=== PATIENT | female | born 1970 | race Caucasian/White ===

== ENCOUNTER 2016-12-28 02:14 | Observation (INO) ==
[2016-12-28] MEDS ORDERED: Aspirin 81 MG TAB.CHEW PO ONE (02:17)
--- NOTE | 2016-12-28 02:21 | Emergency Department Note ---
Disposition Clinical Impression: Chest pain Qualifiers: Chest pain type: unspecified Qualified Code(s): R07.9 - Chest pain, unspecified Disposition: Admitted As Inpatient Condition: Good Forms: ED Satisfaction Letter Time of Disposition: 04:06 Chest Pain HPI - General Chief Complaint: ED Chest Pain Stated Complaint: chest pain Source: patient - History of Present Illness HPI Narrative: Patient presents to the emergency department for evaluation of substernal chest pain with radiation to the jaw and neck. She denies radiation of pain into the back or extremities. She states that she has been slightly diaphoretic, though she states that the symptoms began while she was at work and it is quite warm there. She denies any associated dyspnea nausea or vomiting. She denies abdominal pain. She denies lower extremity edema or calf discomfort. Denies recent prolonged immobilization. Denies history of DVT or PE. She states that she took one 81 mg aspirin prior to arrival. - Related Data Allergies Allergy/AdvReac Type Severity Reaction Status Date / Time ketorolac [From Toradol] Allergy Difficulty Verified 12/28/16 02:37 Breathing Constitutional: Denies: fever, chills Eyes: Denies: vision change ENT ED: Denies: ear pain, throat pain Cardiovascular: Reports: as per HPI Respiratory: Denies: cough, dyspnea, wheezes, hemoptysis Gastrointestinal: Denies: abdominal pain, nausea, vomiting, diarrhea Genitourinary: Denies: urgency, dysuria, frequency Integumentary: Denies: rash Neurological: Denies: headache, weakness, numbness, paresthesias Endocrine: Denies: fatigue Hematological/Lymphatic: Denies: easy bleeding Chest Pain PMH - Past Medical History Medical history: Reports: hypertension Surgical history: Reports: hysterectomy - Social History Smoking Status: Current every day smoker Drug use: Reports: none Father Family Medical History Unknown: Yes (Strong family history of coronary artery disease) Physical Exam - General Limitations: no limitations General appearance: alert, in no apparent distress (Resting comfortable and smiling interactive alert and appropriately cooperative and pleasant) - Head Head exam: atraumatic, normocephalic - Eye Eye exam: Present: normal appearance, PERRL, EOMI - ENT ENT exam: normal exam, normal oropharynx, mucous membranes moist - Neck Neck exam: Present: normal inspection - Respiratory Respiratory exam: Present: normal lung sounds bilaterally - Cardiovascular Cardiovascular exam: Present: regular rate, normal rhythm, normal heart sounds - Abdominal Exam Abdominal exam: Present: soft, Non-Tender, normal bowel sounds - Extremities Exam Extremities exam: Present: normal inspection, full ROM, normal capillary refill. Absent: tenderness, pedal edema, calf tenderness - Expanded Lower Extremity Exam Neurovascular/Tendon exam: Present: normal capillary refill. Absent: pulse deficit, motor deficit - Back Exam Back exam: Present: normal inspection. Absent: tenderness - Neurological Exam Neurological exam: Present: alert, oriented X3 - Psychiatric Psychiatric exam: Present: normal affect, normal mood - Skin Skin exam: Present: warm, dry, intact, normal color Course Vital Signs Temperature 96.3 F L 12/28/16 02:15 Pulse Rate 83 12/28/16 02:15 Respiratory Rate 13 12/28/16 02:15 Blood Pressure 145/97 12/28/16 02:15 O2 Sat by Pulse Oximetry 98 12/28/16 02:15 Temperature 96.3 F L 12/28/16 02:15 Pulse Rate 83 12/28/16 02:15 Respiratory Rate 13 12/28/16 02:15 Blood Pressure 145/97 12/28/16 02:15 O2 Sat by Pulse Oximetry 98 12/28/16 02:15 Oxygen Delivery Oxygen Delivery Room Air Chest Pain - MDM Narrative Medical decision making narrative: Time 405: Patient resting comfortably, states her pain is nearly resolved, vital signs are stable. Patient will be admitted to the hospitalist service for ongoing evaluation of her symptoms - Lab Data Lab results reviewed: Yes I reviewed the patient's lab results. Result diagrams: 12/28/16 02:50 12/28/16 02:50 Lab Results 12/28/16 12/28/16 12/28/16 Range/Units 02:50 02:50 02:50 WBC 12.7 H (4.3-11.1) K/mcL RBC 4.81 (3.82-4.97) M/mcL Hgb 14.3 (11.5-15.4) g/dL Hct 42.6 (35.3-44.9) % MCV 88.6 (83.0-100.0) fL MCH 29.7 (28.0-33.3) pg MCHC 33.6 (31.6-35.5) g/dL RDW 13.3 (11.5-14.5) % Plt Count 288 (140-400) K/mcL MPV 10.2 (9.4-12.4) fL Immature Gran % 0.3 (0-4) % Seg Neutrophils % 50.9 % Lymphocytes % 39.5 % Monocytes % 7.4 % Eosinophils % 1.7 % Basophils % 0.2 % Neutrophils # 6.5 (1.6-8.9) K/mcL Lymphocytes # 5.0 H (0.6-4.6) K/mcL Monocytes # 0.9 (0.0-1.3) K/mcL Eosinophils # 0.2 (0.0-0.6) K/mcL Basophils # 0.0 (0.0-0.2) K/mcL PT 10.4 (9.4-12.1) Seconds INR 1.0 APTT 27.7 (26.0-36.0) Seconds Sodium (136-145) mEq/L Potassium (3.5-4.5) mEq/L Chloride (98-109) mEq/L Carbon Dioxide (19-29) mEq/L BUN (7-20) mg/dL Creatinine (0.57-1.11) mg/dL Est GFR ( Amer) (> 60) Est GFR (Non-Af Amer) (> 60) BUN/Creatinine Ratio (6-26) Glucose (70-99) mg/dL Calculated Osmolality (280-300) Calcium (8.6-10.8) mg/dL Total Bilirubin 0.2 (0.2-1.2) mg/dL Direct Bilirubin < 0.1 (0.0-0.5) mg/dL Indirect Bilirubin 0.1 (0.0-1.2) mg/dL AST 12 (5-34) Units/L ALT 21 (0-55) Units/L Alkaline Phosphatase 64 (38-126) Units/L Troponin I (0-0.03) ng/mL Serum Total Protein 7.4 (6.0-8.3) g/dL Albumin 4.0 (3.5-5.0) g/dL Globulin 3.4 (2.4-3.5) g/dL Albumin/Globulin Ratio 1.2 (1.1-2.2) Lipase 52 (8-78) Units/L 06/05/17 06/05/17 Range/Units 02:50 02:50 WBC (4.3-11.1) K/mcL RBC (3.82-4.97) M/mcL Hgb (11.5-15.4) g/dL Hct (35.3-44.9) % MCV (83.0-100.0) fL MCH (28.0-33.3) pg MCHC (31.6-35.5) g/dL RDW (11.5-14.5) % Plt Count (140-400) K/mcL MPV (9.4-12.4) fL Immature Gran % (0-4) % Seg Neutrophils % % Lymphocytes % % Monocytes % % Eosinophils % % Basophils % % Neutrophils # (1.6-8.9) K/mcL Lymphocytes # (0.6-4.6) K/mcL Monocytes # (0.0-1.3) K/mcL Eosinophils # (0.0-0.6) K/mcL Basophils # (0.0-0.2) K/mcL PT (9.4-12.1) Seconds INR APTT (26.0-36.0) Seconds Sodium 142 (136-145) mEq/L Potassium 3.9 (3.5-4.5) mEq/L Chloride 104 (98-109) mEq/L Carbon Dioxide 24 (19-29) mEq/L BUN 22 H (7-20) mg/dL Creatinine 1.06 (0.57-1.11) mg/dL Est GFR ( Amer) > 60 (> 60) Est GFR (Non-Af Amer) 56 L (> 60) BUN/Creatinine Ratio 21 (6-26) Glucose 95 (70-99) mg/dL Calculated Osmolality 297 (280-300) Calcium 9.7 (8.6-10.8) mg/dL Total Bilirubin (0.2-1.2) mg/dL Direct Bilirubin (0.0-0.5) mg/dL Indirect Bilirubin (0.0-1.2) mg/dL AST (5-34) Units/L ALT (0-55) Units/L Alkaline Phosphatase (38-126) Units/L Troponin I 0.00 (0-0.03) ng/mL Serum Total Protein (6.0-8.3) g/dL Albumin (3.5-5.0) g/dL Globulin (2.4-3.5) g/dL Albumin/Globulin Ratio (1.1-2.2) Lipase (8-78) Units/L ITS Impressions Chest X-Ray 12/28/16 02:17 IMPRESSION: No acute process. D/ / Jamshid Del Cid MD / Jamshid Del Cid MD Interpreting Provider: Jamshid Del Cid MD - Radiology Data Radiology results reviewed: Yes I reviewed the patient's radiology results. - EKG Data EKG attestation: Yes I reviewed and interpreted this EKG. EKG shows normal: sinus rhythm (Normal sinus rhythm with a rate of 68. Normal axis. No acute ST segment or T-wave changes.)
[2016-12-28] MEDS ORDERED: Nitroglycerin 1 INCH/GM PACKET TP ONE (02:23)
[2016-12-28 03:04] LABS: Basophils % 0.2 %; Eosinophils # 0.2 K/mcL (0.0-0.6); Eosinophils % 1.7 %; Hematocrit 42.6 % (35.3-44.9); Hemoglobin 14.3 g/dL (11.5-15.4); Immature Granulocytes % 0.3 % (0-4); Lymphocytes % 39.5 %; Mean Corpuscular HGB Conc 33.6 g/dL (31.6-35.5); Mean Corpuscular Hemoglobin 29.7 pg (28.0-33.3); Mean Corpuscular Volume 88.6 fL (83.0-100.0); Mean Platelet Volume 10.2 fL (9.4-12.4); Monocytes # 0.9 K/mcL (0.0-1.3); Monocytes % 7.4 %; Neutrophils # 6.5 K/mcL (1.6-8.9); Platelet Count 288 K/mcL (140-400); Red Blood Count 4.81 M/mcL (3.82-4.97); Red Cell Distribution Width 13.3 % (11.5-14.5); Segmented Neutrophils % 50.9 %
[2016-12-28 03:05] LABS: Prothrombin Time 10.4 Seconds (9.4-12.1)
[2016-12-28 03:08] LABS: Activated Partial Thrombo Time 27.7 Seconds (26.0-36.0)
[2016-12-28 03:15] LABS: BUN/Creatinine Ratio 21 (6-26); Blood Urea Nitrogen 22 mg/dL (7-20); Calcium 9.7 mg/dL (8.6-10.8); Carbon Dioxide 24 mEq/L (19-29); Chloride 104 mEq/L (98-109); Glucose 95 mg/dL (70-99); Osmolality,Calculated 297 (280-300); Potassium 3.9 mEq/L (3.5-4.5); Sodium 142 mEq/L (136-145); eGFR For African Americans > 60 (> 60); eGFR For Non-African Americans 56 (> 60)
[2016-12-28 03:18] LABS: Alanine Aminotransferase 21 Units/L (0-55); Albumin/Globulin Ratio 1.2 (1.1-2.2); Alkaline Phosphatase 64 Units/L (38-126); Aspartate Amino Transferase 12 Units/L (5-34); Bilirubin,Direct < 0.1 mg/dL (0.0-0.5); Bilirubin,Indirect 0.1 mg/dL (0.0-1.2); Bilirubin,Total 0.2 mg/dL (0.2-1.2); Globulin 3.4 g/dL (2.4-3.5); Lipase 52 Units/L (8-78); Total Protein 7.4 g/dL (6.0-8.3)
[2016-12-28 06:32] VITALS: BP 115/75
--- NOTE | 2016-12-28 12:32 | Internal Med History&Physical ---
Date of Encounter: 12/28/16 Time of Encounter: 12:00 Assessment and Plan (1) Chest pain Current visit: Yes Status: Acute She is pain-free at present. Repeat cardiac enzymes were ordered through emergency room. Further workup be done as needed. Qualifiers: Chest pain type: unspecified Qualified Code(s): R07.9 - Chest pain, unspecified (2) Hypertension Current visit: Yes Status: Chronic Blood pressure will be monitored. She is uncertain of the doses of her metoprolol and lisinopril/HCTZ. Qualifiers: Hypertension type: essential hypertension Qualified Code(s): I10 - Essential (primary) hypertension (3) Azotemia Current visit: Yes Status: Acute Suspect secondary to lisinopril/HCTZ. Internal Medicine - H&P: HPI Chief complaint: Chest discomfort Admitted From: Home Plans for Post Hospital Care: Home History of present illness: Ms. Nieves is a 46 year old female who came from work to emergency room after she developed a discomfort in her chest that she describes as a left chest pressure that radiated to her neck and jaw. It occurred approximately 2 AM as she was doing her usual duties at work. 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 She came to emergency room and was evaluated. She was admitted to [facility] for ongoing care needs. She states she is pain-free at this time. She thinks she has had previous similar pain on 2 occasions most recently 3-4 years ago. She has worked at her present duties for several weeks to months without any discomfort of similar nature. Her cardiovascular history is significant for hypertension. She denies AK heart failure angina DVT or pulmonary embolus. She does not check her blood pressures at home. She states she recently had lisinopril/HCTZ added to her metoprolol for blood pressure control. Past Med Surg Social Fam HX - Past Medical History Medical history: hypertension Psychiatric history: no psych history - Past Surgical History Surgical History: cholecystectomy, hysterectomy - Social History Smoking Status: Current every day smoker Packs per day: 0.5 Smokeless Tobacco Status: No Alcohol use: occasionally Drug use: none - Family History Father History Unknown: Yes Internal Medicine - H&P: Meds Aspirin [Lo-Dose Aspirin EC] 81 mg PO 12/28/16 [History] Metoprolol Succinate/Hctz [Metoprolol ER-Hctz 25-12.5 mg] 1 tab PO BID 12/28/16 [History] Pantoprazole Sodium [Protonix] 20 mg PO DAILY 12/28/16 [History] Allergies ketorolac [From Toradol] Allergy (Verified 12/28/16 02:37) Difficulty Breathing All Systems PM: A 10-system review of systems was performed and is negative for pertinent findings except as documented above in the HPI. Review of systems: Gen.: She states her weight has been stable past few months Cardiovascular: As per history of present illness Respiratory: She smoked since age 19 never exceeding 1 pack per day. She denies known chronic lung disease GI: She has had cholecystectomy. She denies disorders of her liver or exocrine pancreas : She denies hematuria dysuria or kidney stones Neurologic: She denies large distribution strokes or seizures Endocrine: She has hyperlipidemia but denies diabetes or thyroid disease. Hematology/oncology: She denies blood disorders cancers or anemia Psychiatric: She denies anxiety depression or other mental health issues Musk skeletal: She denies arthritis gout other bone joint or muscle disorders. - Constitutional Vitals: Temp Pulse Resp BP Pulse Ox 97.7 F 66 18 115/75 98 12/28/16 06:30 12/28/16 06:30 12/28/16 06:30 12/28/16 06:30 12/28/16 06:30 Exam: Gen.: She is a well-developed well-nourished female who appears in no acute distress at present time HEENT: Head is atraumatic and normocephalic. Eyes: EOMI. There is no scleral icterus. Mouth: Mucosa is moist. Neck: Supple and nontender. There is no thyromegaly or adenopathy noted. Heart: Regular without murmurs gallops or ectopics Chest: She is nontender in her chest wall to palpation Abdomen: Soft and nontender. No masses or guarding are noted. Extremities: There is no cyanosis edema or clubbing noted. Dorsalis pedis and posttibial pulses are trace palpable bilaterally. Neurologic: Mental status: She is talkative and a good historian. Cranial nerves: Smile is symmetric. Forehead wrinkles bilaterally. Tongue protrudes midline. EOMI. Motor: There is no pronator drift. Cerebellar: Finger to nose is intact bilaterally. Skin: Warm and dry Internal Med - H&P Results - Labs CBC & Chem 7: 12/28/16 02:50 12/28/16 02:50 Labs: Cardiac Enzymes 12/28/16 Range/Units 08:49 Troponin I 0.00 (0-0.03) ng/mL
--- NOTE | 2016-12-28 12:42 | Discharge Summary ---
Date of Encounter: 12/28/16 Time of Encounter: 12:00 - Discharge Diagnosis (1) Chest pain Priority: Primary Status: Resolved Qualifiers: Chest pain type: unspecified Qualified Code(s): R07.9 - Chest pain, unspecified (2) Hypertension Priority: Secondary Status: Chronic Qualifiers: Hypertension type: essential hypertension Qualified Code(s): I10 - Essential (primary) hypertension (3) Azotemia Priority: Secondary Status: Acute - Discharge Medications Prescriptions: Metoprolol [Lopressor] 50 mg PO BID #60 tablet Nitroglycerin [Nitrostat] 0.4 mg SL Q5M PRN #1 vial PRN Reason: Chest Pain Home Medications: Aspirin [Lo-Dose Aspirin EC] 81 mg PO 12/28/16 [History] Metoprolol [Lopressor] 50 mg PO BID #60 tablet 12/28/16 [Rx] Nitroglycerin [Nitrostat] 0.4 mg SL Q5M PRN #1 vial 12/28/16 [Rx] Pantoprazole Sodium [Protonix] 20 mg PO DAILY 12/28/16 [History] Allergies/Adverse Reactions: Allergies ketorolac [From Toradol] Allergy (Verified 12/28/16 02:37) Difficulty Breathing Date of admission: 12/28/16 04:26 Primary care physician: Kodi Fernandez CNP - Patient Status Disposition: Home, Self-Care Condition: Good Functional capacity at discharge: independent ambulation Overall status at discharge: patient is back to baseline - Discharge Instructions Follow Up With: Kodi Fernandez CNP [Advanced Practice Nurse] - 1 week - Diet and Activity Activity: resume usual activities as tolerated Diet: advance to your usual diet Hospital course: Ms. Nieves is a 46 year old female who came from work to emergency room after she developed a discomfort in her chest that she describes as a left chest pressure that radiated to her neck and jaw. It occurred approximately 2 AM as she was doing her usual duties at work. 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 She came to emergency room and was evaluated. She was admitted to [facility] for ongoing care needs. Initial orders were written by the emergency room physician. I saw her the afternoon of December 28 and performed a history physical and discharge. Repeat cardiac enzymes showed no evidence of myocardial damage. When I saw her I was not convinced the chest pain was of myocardial ischemic origin. I felt it was reasonable to give her Nitrostat for prn use. 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 She will discontinue her lisinopril/HCTZ since I felt it was likely the cause of her mild azotemia. She was uncertain of the home dose for metoprolol so I prescribed 50 mg twice a day. She will follow with her PCP within one week. I encouraged her to discontinue smoking. - Time Spent with Patient Total time spent providing and/or coordinating discharge services: - Constitutional Vitals: Temp Pulse Resp BP Pulse Ox 97.7 F 66 18 115/75 98 12/28/16 06:30 12/28/16 06:30 12/28/16 06:30 12/28/16 06:30 12/28/16 06:30
--- NOTE | 2016-12-28 16:14 | Electrocardiograph Report ---
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
== END 2016-12-28 13:21 | disposition home or self-care (01) ==
LOC: INPPIK 02:14 → EMEROOPIK 02:14 → INPPIK 04:51
PROVIDERS: ADMIT Internal Medicine; ATTEND Internal Medicine